=== PATIENT | female | born 1990 | race African-American/Black ===

== ENCOUNTER 2022-07-07 16:09 | Emergency (ER) | payer MEDICAID, OTHER ==
[~2022-07-07] VITALS: Ht 172.7 cm; Wt 88.0 kg
[2022-07-07 16:12] VITALS: BP 116/81
[2022-07-07] MEDS ORDERED: ACETAMINOPHEN 325MG TABLET PO ONE (16:45)
[2022-07-07] MEDS ORDERED: IBUP-2029 MT (17:41)
[2022-07-07] MEDS ORDERED: AMOX-494 MT (17:41)
[2022-07-07] MEDS ORDERED: DEXAMETHASONE 4MG/ML 1ML VIAL IM ONE (17:45)
[2022-07-07] MEDS ORDERED: AMOXICILLIN 500 MG CAPSULE PO ONE (17:45)
== END 2022-07-07 19:08 | disposition home or self-care (01) ==
LOC: ER 16:09
DX: J02.9 Acute pharyngitis, unspecified (principal); H92.02 Otalgia, left ear; Z91.040 Latex allergy status
CPT/HCPCS: 81025; 87070; 87430; 96372; 99283; J1100